=== PATIENT | female | born 1995 | race Two or more races ===

== ENCOUNTER 2025-03-09 07:34 | Emergency (ER) | payer MEDICAID, SELFPAY ==
--- NOTE | 2025-03-09 07:37 | XR_ITS ---
Examination: Complete OB ultrasound, less than 14 weeks, transabdominal Date and time of exam: March 09, 2025, 0753 hours INDICATIONS: Vaginal bleeding beginning yesterday, positive test yesterday Technique: Obstetrical ultrasound images less than 14 weeks performed via transabdominal imaging Findings: A normal shaped single intrauterine gestation is present in the uterus. CRL 1.1 cm corresponds to 7 weeks 1 day gestational age Cardiac motion 138 BPM Ultrasonographic survey of visible and placental structures unremarkable. Amniotic fluid volume appears appropriate for this estimated gestational age. Right ovary 3.5 cm arterial flow 14 mm follicular cyst Left ovary 2.6 cm arterial flow to millimeters follicular cyst IMPRESSION: Viable intrauterine gestation 7 weeks 1 day.
[2025-03-09 07:44] VITALS: BP 134/94; PULSE 85; RESP 17; TEMP 36.8; O2SAT 98; BMI 44.6
[2025-03-09 08:00] LABS: Basophils # (Auto) 0.1 Thou/mm3 (0.0-0.2); Basophils % (Auto) 0 % (0-2.5); Eosinophils # (Auto) 0.1 Thou/mm3 (0.0-0.5); Eosinophils % (Auto) 1 % (0-10); Hematocrit 40.1 % (36.0-46.0); Hemoglobin 13.5 g/dL (12.0-16.0); Immature Granulocytes Auto 0.04 Thou/mm3 (0.00-0.00); Lymphocytes # (Auto) 2.2 Thou/mm3 (1.0-4.8); Lymphocytes % (Auto) 19 % (10-50); Mean Corpuscular HGB Conc 33.7 g/dl (31.0-37.0); Mean Corpuscular Hemoglobin 28.5 pg (25.0-35.0); Mean Corpuscular Volume 85 fL (80-100); Monocytes # (Auto) 0.5 Thou/mm3 (0.0-0.8); Monocytes % (Auto) 4 % (0-12); Neutrophils # (Auto) 8.9 Thou/mm3 (1.8-7.7); Neutrophils % (Auto) 76 % (37-80); Nucleated Red Blood Cell # 0.00 Thou/mm3 (0.00-0.00); Nucleated Red Blood Cell % 0 /100 WBC (0); Platelet Count 315 Thou/mm3 (140-440); RDW Standard Deviation 40.1 fL (36.4-46.3); Red Blood Count 4.74 Miln/mm3 (4.00-5.20); White Blood Count 11.8 Thou/mm3 (3.6-11.0)
[2025-03-09 08:44] LABS: Alanine Aminotransferase 54 U/L (10-49); Albumin, Serum 4.6 gm/dL (3.5-5.0); Albumin/Globulin Ratio 1.9 (1.2-2.2); Alkaline Phosphatase 54 U/L (46-116); Anion Gap 10 (7-16); Aspartate Amino Transferase 30 U/L (0-34); BUN/Creatinine Ratio 15 Ratio (12-20); Bilirubin,Total 0.4 mg/dL (0.3-1.2); Blood Urea Nitrogen 9 mg/dL (9-23); Calcium 10.0 mg/dL (8.3-10.6); Calcium (Corrected) 10.0 mg/dL (8.5-10.1); Carbon Dioxide 26.0 mMol/L (20.0-31.0); Chloride 104 mMol/L (98-107); Creatinine (Component) 0.6 mg/dL (0.6-1.3); Estimated Creatinine Clearance 177.9 mL/min (>60); Globulin 2.4 gm/dL (2.3-3.5); Glucose 96 mg/dL (74-106); Osmolality,Calculated 278 (275-295); Potassium 3.8 mMol/L (3.4-5.1); Sodium 140 mMol/L (136-145); Total Protein 7.0 gm/dL (5.7-8.2); eGFR > 60 See Note
[2025-03-09 08:47] LABS: Collection Type, Urine Clean Catch
[2025-03-09 08:58] LABS: Beta HCG,Quantitative 57678 mIU/mL (<5.0)
[2025-03-09 09:09] LABS: Bacteria,Urine Rare; Bilirubin,Urine Negative (Negative); Blood,Urine Negative (Negative); Clarity,Urine Turbid (Clear/Hazy); Color,Urine Yellow (Lt Yel-Yel); Glucose, Urine Negative (Negative); Ketones,Urine Negative (Negative); Leukocyte Esterase,Urine Positive (Negative); Nitrite,Urine Negative (Negative); PH,Urine 7.0 (5.0-7.0); Protein,Urine Trace (Neg - Trace); RBC,Urine 5 /hpf (0-3); Specific Gravity,Urine 1.023 (1.001-1.035); Squamous Epithelial Cell,Urine 11 /hpf (0-5); Urobilinogen,Urine Negative mg/dL (0.0-1.0); WBC,Urine 3 /hpf (0-5)
--- NOTE | 2025-03-09 09:41 | EDNOTE_ITS ---
ED OB Contraction Preg RMI/HPI General Chief complaint: Vaginal Bleeding Stated complaint: 12 weeks OB, vaginal bleeding, low back pain Time Seen by Provider: 03/09/25 07:36 Arrival date/time: 03/09/25 07:34 30-year-old female presents to the Emergency Department today states she believes she is approximately 12 weeks patient reports lower back pain and pelvic pain with vaginal spotting Limitations: no limitations Related Data Home Medications ?Medication ?Instructions ?Recorded ?Confirmed vits no.124-ferrous fum 1 tab PO QDAY 0 03/05/20 27 mg iron-folic acid 800 mcg tablet ( Vitamin) Allergies Allergy/AdvReac Type Severity Reaction Status Date / Time walnut Allergy Unknown THROAT Verified 03/09/25 07:39 AGNES Review of Systems Review of Systems Systems Reviewed: All systems reviewed, normal except as documented Constitutional Constitutional: Reports system reviewed and no additional complaints, except as documented, Denies fever(s) and Denies headache(s) Eyes Eyes: Reports system reviewed and no additional complaints, except as documented and Denies blurry vision ENT Ears, Nose, Mouth, and Throat: Reports system reviewed and no additional complaints, except as documented, Denies headache(s), Denies nasal congestion and Denies nasal discharge Cardiovascular Cardiovascular: Reports system reviewed and no additional complaints, except as documented, Denies chest pain and Denies dyspnea Respiratory Respiratory: Reports system reviewed and no additional complaints, except as documented, Denies chest congestion, Denies cough and Denies dyspnea Gastrointestinal Gastrointestinal: Reports system reviewed and no additional complaints, except as documented and Denies abdominal pain Genitourinary Genitourinary: Reports system reviewed and no additional complaints, except as documented, Reports abnormal vaginal bleeding and Reports pelvic pain Integumentary/Breasts Skin/Breast: Reports system reviewed and no additional complaints, except as documented and Denies rash Neurologic Neurologic: Reports system reviewed and no additional complaints, except as documented, Reports as per HPI and Denies headache(s) Past Medical History Past Medical History NEUROLOGIC: Negative Neurological Disorders or Seizures CARDIAC: Negative Cardiac Disorders or Congestive Heart Failure RESPIRATORY: Positive Asthma; Negative Chronic Obstructive Pulmonary Disease (COPD) GASTROINTESTINAL: Positive Gastrointestinal Disorders and Gall Bladder Disease (PT CURRENTLY HAS GALLSTONES); Negative Colorectal Cancer GENITOURINARY: Negative Genitourinary Disorders, Renal Disease or Prostate Cancer REPRODUCTIVE: Positive Previous Pregnancies; Negative Breast Cancer or Testicular Cancer MUSCULOSKELETAL: Negative Musculoskeletal Disorders or Bone Cancer ENT: Positive Ear Infection ENDOCRINE: Negative Endocrine Disorders, Diabetes Mellitus Type 1 or Diabetes Mellitus Type 2 HEMATOLOGIC: Positive Blood Disorders and Anemia (WITH FIRST ) OTHER HISTORY: Positive Hospitalization (CHILDBIRTH); Negative Autoimmune Disease, Falls, Blood Transfusions, Blood Transfusion Reaction, Anesthesia Reactions, Clostridium Difficile, Cancer, Breast Cancer, Cervical Cancer, Colorectal Cancer, Lung Cancer, Ovarian Cancer, Prostate Cancer or Testicular Cancer Family History FAMILY HISTORY: Positive Family Cardiac Disorders (FATHER HAD HEART ATTACK); Negative Family Psychiatric Problems, Family Respiratory Disorders, Family Gastrointestinal Problems, Family Cancer, Family Surgery or Family Anesthesia Reaction Surgical History SURGICAL: Positive Section (X 2015) Social History SMOKING STATUS: Never smoker ED Exam General Limitations: Present no limitations General appearance: Present alert and in no apparent distress Head Head exam: Present atraumatic, normocephalic and normal inspection Eye Eye exam: Present normal appearance, PERRL and EOMI; Absent conjunctival injection ENT ENT exam: Present normal exam, normal oropharynx and mucous membranes moist Neck Neck exam: Present normal inspection, full ROM and trachea midline Chest Chest inspection: Present normal inspection and symmetric chest wall rise Respiratory Respiratory exam: Present normal lung sounds bilaterally; Absent respiratory distress Cardiovascular Cardiovascular exam: Present regular rate, normal rhythm and normal heart sounds Abdominal Exam Abdominal exam: Present soft and normal bowel sounds; Absent distention, tenderness, guarding, rebound or rigidity Extremities Exam Extremities exam: Present normal inspection and full ROM Back Exam Back exam: Present normal inspection and full ROM Neurological Exam Neurological exam: Present alert, oriented X3 and CN II-XII intact Psychiatric Psychiatric exam: Present normal affect and normal mood Skin Skin exam: Present warm, dry, intact and normal color Course Quality Measures none Orders Category Date Time Status US OB <= 14 weeks fetus Stat Exams 03/09/25 07:37 Completed ABO/RH Type Stat Lab 03/09/25 07:50 Completed Beta HCG,Quantitative Stat Lab 03/09/25 07:50 Completed CBC Stat Lab 03/09/25 07:50 Completed Comprehensive Metabolic Panel Stat Lab 03/09/25 07:50 Completed UA [Urinalysis] Stat Lab 03/09/25 08:27 Completed Urine Culture Stat Lab 03/09/25 08:27 Completed Vital Signs Vital signs: Vital Signs Temperature 98.3 F 03/09/25 07:44 Pulse Rate 85 03/09/25 07:44 Respiratory Rate 17 03/09/25 07:44 Blood Pressure 134/94 H 03/09/25 07:44 Pulse Oximetry (%) 98 03/09/25 07:44 Oxygen Delivery Method Room Air 03/09/25 07:44 O2 saturation 98% room air within normal limits Vaginal Bleeding MDM Narrative MDM Narrative: 30-year-old female presents to the Emergency Department today states she believes she is approximately 12 weeks patient reports lower back pain and pelvic pain with vaginal spotting On exam patient well-appearing patient is not appear ill or toxic no acute distress On exam patient has no active bleeding Lab work and imaging obtained patient appears to have viable 7 weeks 1 day Patient struck to follow-up with [facility] as soon as possible for worsening concerns return immediately Patient data External records reviewed:: [facility] previous records Clinical information provided by:: patient Social determinants that could affect healthcare access:: none Patient has the following chronic illnesses:: None How is presenting disease/condition affected by chronic disease/condition?: no chronic disease Evaluation data The following diagnostics were reviewed and interpreted by me:: lab results and radiology exam(s) Lab and/or radiology exams considered but not ordered:: Labs radiology obtained Interpretation Summary: Reviewed by me Medications / Prescriptions Medications or Prescriptions considered but not ordered:: Given no meds Medication administrations:: Given no meds Consultations Consultation(s) initiated? (list below): No Diagnosis Vaginal Bleeding Differential Diagnosis: missed and threatened Most likely diagnosis given after review of the tests above:: Bleeding affecting Admission Indicated Admission indicated?: not indicated Admission Request Was there a request for admission?: No Disposition Plan Disposition Plan: Discharge Discharge Attestation Discharge Attestation: The patient and all family members were given an opportunity to ask questions and understood the discharge instructions. Discharge instructions specifically effects, indications for sooner follow up or return to the emergency department, and the expected course of current diagnosis. Patient condition: Stable Discharge Plan Plan Patient Disposition: HOME (Self Care) Discharge Disposition comment: Stable Prescriptions/Referrals Prescriptions/Med Rec: No Action Vitamin 27 mg iron- 800 mcg Tablet 1 tab PO QDAY Referrals: No Primary/Family,Physician [Primary Care Provider] - In 1 week Problem List Clinical Impression: Pelvic pain during Patient/Caregiver Discharge Instructions Education Materials: Medicine for Pain Additional Instructions: Please follow up with your [facility] doctor in the next 24-48hrs for any worsening symptoms return here immediately Print Language: Tanzanian Stand Alone Forms: Cinthia Award Info., Patient Portal Info Letter PA/DESTINATION IMAGINATION COORDINATOR Supervising Physician PA/DESTINATION IMAGINATION COORDINATOR Supervising Physician: Dr. jenkins
== END 2025-03-09 10:45 | disposition home or self-care (01) ==
PROVIDERS: Nurse Practitioner Primary Care; Emergency Provider Family Medicine
DX: O99.891 Other specified diseases and conditions complicating pregnancy (principal); R10.2 Pelvic and perineal pain; Z3A.12 12 weeks gestation of pregnancy
CPT/HCPCS: 36415; 76801; 80053; 81001; 84702; 85025; 86900; 86901; 87086; 99283

== ENCOUNTER 2025-04-14 06:45 | Emergency (ER) | payer MEDICAID, SELFPAY ==
[2025-04-14 06:46] VITALS: BMI 46.0
[2025-04-14 07:03] VITALS: BP 124/89; PULSE 100; RESP 18; TEMP 36.9; O2SAT 98
--- NOTE | 2025-04-14 07:41 | PD.EDURI ---
Upper Respiratory Inf. RME/HPI General Chief Complaint: Upper Respiratory Infection Stated Complaint: L SIDE FACIAL PAIN Time Seen by Provider: 04/14/25 06:55 Source: patient Arrival date/time: 04/14/25 06:45 30-year-old female with no known medical history presents to the emergency room with a chief complaint of left-sided facial pain x 4 days. Mode of arrival: ambulatory Limitations: no limitations Related Data Home Medications ?Medication ?Instructions ?Recorded ?Confirmed vits no.124-ferrous fum 1 tab PO QDAY 03/05/20 03/05/20 27 mg iron-folic acid 800 mcg tablet ( Vitamin) Previous Rx's ?Medication ?Instructions ?Recorded acetaminophen 325 mg capsule 650 mg (2 x 325 mg) PO QID PRN 04/14/25 fever or pain 7 days #30 caps clindamycin HCl 300 mg capsule 300 mg PO TID 7 days #21 caps 04/14/25 Allergies Allergy/AdvReac Type Severity Reaction Status Date / Time walnut Allergy Unknown THROAT Verified 04/14/25 06:49 AGNES Review of Systems Review of Systems Systems Reviewed: All systems reviewed, normal except as documented Constitutional Constitutional: Reports system reviewed and no additional complaints, except as documented, Denies fatigue, Denies fever(s), Denies headache(s) and Denies weakness Eyes Eyes: Reports system reviewed and no additional complaints, except as documented, Denies blurry vision and Denies change in vision ENT Ears, Nose, Mouth, and Throat: Reports system reviewed and no additional complaints, except as documented, Denies otalgia, Denies headache(s), Denies nasal congestion, Denies throat swelling and Denies vertigo Cardiovascular Cardiovascular: Reports system reviewed and no additional complaints, except as documented, Denies chest pain, Denies dyspnea and Denies dyspnea on exertion Respiratory Respiratory: Reports system reviewed and no additional complaints, except as documented, Denies chest congestion, Denies cough, Denies dyspnea, Denies dyspnea on exertion and Denies wheezing Gastrointestinal Gastrointestinal: Reports system reviewed and no additional complaints, except as documented, Denies abdominal pain, Denies cramping, Denies nausea and Denies vomiting Genitourinary Genitourinary: Reports system reviewed and no additional complaints, except as documented Musculoskeletal Musculoskeletal: Reports system reviewed and no additional complaints, except as documented and Denies back pain Integumentary/Breasts Skin/Breast: Reports system reviewed and no additional complaints, except as documented and Denies wounds Neurologic Neurologic: Reports system reviewed and no additional complaints, except as documented, Denies confusion, Denies headache(s), Denies lack of coordination, Denies vertigo and Denies weakness Psychiatric Psychiatric: Reports system reviewed and no additional complaints, except as documented, Denies anxiety, Denies confusion, Denies depression, Denies paranoia, Denies suicidal ideation and Denies tactile hallucinations Endocrine Endocrine: Reports system reviewed and no additional complaints, except as documented and Denies fatigue Hematologic/Lymphatic Hematologic/Lymphatic: Reports system reviewed and no additional complaints, except as documented and Denies lymphadenopathy Allergic/Immunologic Allergic/Immunologic: Reports system reviewed and no additional complaints, except as documented, Denies throat swelling, Denies urticaria and Denies wheezing ED Exam General Limitations: Present no limitations General appearance: Present alert and in no apparent distress Head Head exam: Present atraumatic Eye Eye exam: Present normal appearance, PERRL and EOMI ENT ENT exam: Present normal exam, normal oropharynx and mucous membranes moist Expanded ENT Exam Mouth exam: Present normal external inspection; Absent trismus, tongue normal, tongue elevation or tongue swelling Teeth exam: Present normal inspection and dental tenderness #; Absent fractured tooth # or gingival swelling Teeth numbered:  1. Dental Tenderness Throat exam: Present normal inspection; Absent tonsillar erythema or tonsillar exudate Neck Neck exam: Present normal inspection, full ROM and trachea midline Chest Chest inspection: Present normal inspection and symmetric chest wall rise Respiratory Respiratory exam: Present normal lung sounds bilaterally Cardiovascular Cardiovascular exam: Present regular rate, normal rhythm and normal heart sounds Abdominal Exam Abdominal exam: Present soft and normal bowel sounds Extremities Exam Extremities exam: Present normal inspection and full ROM Back Exam Back exam: Present normal inspection and full ROM Neurological Exam Neurological exam: Present alert, oriented X3 and CN II-XII intact Psychiatric Psychiatric exam: Present normal affect and normal mood Skin Skin exam: Present warm, dry, intact and normal color Course Quality Measures none Vital Signs Vital signs: Vital Signs Temperature 98.5 F 04/14/25 07:03 Pulse Rate 100 04/14/25 07:03 Respiratory Rate 18 04/14/25 07:03 Blood Pressure 124/89 H 04/14/25 07:03 Pulse Oximetry (%) 98 04/14/25 07:03 Oxygen Delivery Method Room Air 04/14/25 07:03 Upper Respiratory Infection MDM Narrative MDM Narrative:: 30-year-old female with no known medical history presents to the emergency room with a chief complaint of left-sided facial pain x 4 days. Patient is hemodynamically stable and in no apparent distress. Patient is currently 10 weeks . Patient states she is having tenderness of her left facial area. An ENT examination was completed and the pain is above tooth #13 and 14. The pain is not actually on the tooth itself but radiates up the gum and is next to her cheekbone. Antibiotics are sent to the patient's pharmacy and the patient was educated to follow-up with her primary care provider and return to the emergency room for any evidence of worsening signs or symptoms Patient data External records reviewed:: [facility] previous records Clinical information provided by:: patient Social determinants that could affect healthcare access:: none Patient has the following chronic illnesses:: No chronic illness How is presenting disease/condition affected by chronic disease/condition?: no chronic disease Evaluation data The following diagnostics were reviewed and interpreted by me:: lab results and radiology exam(s) Lab and/or radiology exams considered but not ordered:: Labs and radiology exams considered and ordered Interpretation Summary: N/A Medications / Prescriptions Medications or Prescriptions considered but not ordered:: No medication given Medication administrations:: No medication given Consultations Consultation(s) initiated? (list below): No Diagnosis Upper Respiratory Differential Diagnosis: upper respiratory infection, viral infection, influenza, pharyngitis and other (Tooth pain) Most likely diagnosis given after review of the tests above:: Tooth pain Admission Indicated Admission indicated?: not indicated Admission Request Was there a request for admission?: No Disposition Plan Disposition Plan: Discharge Discharge Attestation Discharge Attestation: The patient and all family members were given an opportunity to ask questions and understood the discharge instructions. Discharge instructions specifically effects, indications for sooner follow up or return to the emergency department, and the expected course of current diagnosis. Patient condition: Stable Discharge Plan Plan Patient Disposition: HOME (Self Care) Discharge Disposition comment: stable Prescriptions/Referrals Prescriptions/Med Rec: New clindamycin HCl 300 mg capsule 300 mg PO TID 7 Days Qty: 21 0RF acetaminophen 325 mg capsule 650 mg PO QID PRN (Reason: fever or pain) 7 Days Qty: 30 0RF No Action Vitamin 27 mg iron- 800 mcg Tablet 1 tab PO QDAY Problem List Clinical Impression: Pain, dental Patient/Caregiver Discharge Instructions Education Materials: ED Dental Pain Additional Instructions: Please follow-up with your dentist in the next 24 to 48 hours Antibiotics are sent to your pharmacy please pick them up and take them as indicated Keep taking Tylenol for pain management. For any evidence of worsening signs or symptoms return to the emergency room immediately Print Language: Greenlandic Stand Alone Forms: Cinthia Award Info., Work/School Release, Patient Portal Info Letter PA/TWISTING FRAME CHANGER Supervising Physician PA/TWISTING FRAME CHANGER Supervising Physician: Dr. Leon
== END 2025-04-14 07:43 | disposition home or self-care (01) ==
PROVIDERS: Emergency Provider Family Medicine
DX: O99.611 Diseases of the digestive system complicating pregnancy, first trimester (principal); K08.89 Other specified disorders of teeth and supporting structures; Z3A.10 10 weeks gestation of pregnancy
CPT/HCPCS: 99281

== ENCOUNTER 2025-06-23 14:44 | Outpatient (AMB) | payer MEDICAID, SELFPAY ==
[2025-06-23 14:58] VITALS: BP 126/84; PULSE 86; RESP 16; TEMP 36.2; O2SAT 98; BMI 44.7
--- NOTE | 2025-06-23 14:58 | OBCLNT_ITS ---
Vital Signs 06/23/25 14:58 Height 1.63 m Height Method Stated Weight 118.841 kg Weight Measurement Method Standing Scale BMI 44.7 BP 126/84 Blood Pressure Source Automatic Cuff Blood Pressure Location Left Upper Arm Position Sitting Respiration 16 Pulse 86 Pulse Source Monitor Temp 97.1 F Temp Source Oral Pulse Oximetry (%) 98 Oxygen Delivery Method Room Air Allergies/Home Meds Allergies & Medications Allergies walnut Allergy (Unknown, Verified 06/23/25 14:58) THROAT SWELLS Medication Reconciliation vits no.124-ferrous fum 27 mg iron-folic acid 800 mcg tablet ( Vitamin) 1 tab PO QDAY 03/05/20 [History Confirmed 06/23/25] aspirin 81 mg tablet,delayed release (Adult Aspirin Regimen) 81 mg PO QDAY #60 tabs 06/23/25 [Rx] Intake Visit Data Collection New Patient or Established: Established Patient (seen at [facility] within 3 years) Reason for Visit:: TRANSFER INITIAL CARE Seen by Clinical Staff ONLY (RN/MA): No Refinish Technician Required: No Do You Feel Safe at Home: Yes Authorities Contacted: N/A PCP or OBGYN visit in last 3 months: Yes Hx Now: Yes Are you currently on any form of Control: No Last menstrual period: 11/26/24 Pain Present Currently: No Pain Scale Used: Millan-Chan/Numerical Pain scale:: 0 Smoking Status Smoking Status: Former smoker Immunizations Flu Vaccine in the Last 12 Months: No Flu Vaccine Exclusion Criteria: Refused by Patient Questionnaires Covid-19 Vaccine Questionnaire Has patient been vacinated for Covid-19 Have you been vacinated for Covid-19: Yes PHQ-9 PHQ-2 Over the last 2 weeks, how often have you been bothered by any of the following problems? 1. Little interest or pleasure in doing things: not at all 2. Feeling down, depressed, or hopeless: not at all Total score: 0 PHQ-9 3. Trouble falling or staying asleep, or sleeping too much: Not at all 4. Feeling tired or having little energy: Not at all 5. Poor appetite or overeating: Not at all 6. Feeling bad about yourself - or that you are a failure or have let yourself or your family down: Not at all 7. Trouble concentrating on things, such as reading the newspaper or watching television: Not at all 8. Moving or speaking so slowly that other people could have noticed? - Or the opposite - being so fidgety or restless that you have been moving around a lot more than usual: not at all 9. Thoughts that you would be better off or of hurting yourself in some way: Not at all Total score: 0 Source: Developed by Drs. Aaron Pillai, Sera Corea, Reynaldo Reina and colleagues, with an educational cheyenne from [address]. Depression screen completed yes Social History Living Situation History Marital Status: Lives With: Family Housing: House Tobacco History Smoking Status: Former smoker Second Hand Smoke Exposure: No Alcohol History Alcohol Intake: Former Alcohol Intake Frequency: holidays/special occasions only Domestic Abuse History Do You Feel Safe at Home: Yes History of Present Illness HPI Narrative This is a 30-year-old 3 para 2 for OBI. Patient had her initial appointment at [facility]. She has no dates. First ultrasound was March 09 and the measured 7 weeks and 1 day. This gives EDC of October 25, 2025. Patient denies existence of any chronic medical illness. And denies any social habits. She is a previous x 2. And she had a cholecystectomy in 2020. Denies leaking, bleeding, contractions. And she reports movement. Patient is A+, antibody screen negative, RPR nonreactive, she is rubella immune. GC and Chlamydia were negative. She is hepatitis B negative. HIV negative, and hep C negative. Her A1c was 4.3 and her NIPT and carrier screens were negative. OPERATIONS SECTION MANAGER: Past Medical History Past Medical History: No Hx Neurological Disorders, No Hx Breast Cancer, No Hx Cardiac Disorders, No Hx Cancer, Yes Hx Blood Disorders, Yes Hx Anemia (WITH FIRST ), Yes Hx Gastrointestinal Disorders, No Hx Renal Disease, No Hx Diabetes Mellitus Type 1 and No Hx Diabetes Mellitus Type 2 OB Initial Visit OB Flowsheet OB Flowsheet Initial Weight: Not Recorded Date -?-?-?-?-?-?-?-?-?-?-?-?- EGA Weight BP Alb Glu CTX Pres Fundal ht FHR Mov Dilation Station Effacement Hx Notes Visit Note 06/23/25 -?-?-?-?-?-?-?-?-?-?-?-?- 22w 2d 118.841 kg 126/84 absent unknown 22 145 active 30-year-old 3 para 2 for OBI. Patient is a repeat x 2. No dates. First ultrasound was March 09. Patient was 7 weeks 1 day and this gave an EDC of October 25, 2025. Reports good movement. Denies leaking, bleeding, contractions Start low-dose b becky aspirin. Continue prenatals. Schedule ultrasound at [facility] for anatomy scan. And return in 4 weeks for OB check Menstrual History Menstrual reliability: approximate (month known) Flow: normal Menstrual regularity: irregular Monthly: No Age at menarche: 15 On control pills at conception: No Associated symptoms (LMP): Denies amenorrhea, nausea, vomiting, fatigue, breast tenderness, urinary frequency, irritability, bloating or other OB History : 3 Para: 2 Hx # Pregnancies: 1 # of Living Children: 2 Delivery History 1st : Child's name: [email or web address] date: 03/14/16 sex: female Gestational age at delivery (weeks): 32 Delivery type: History of depression before or after : No 2nd : Child's name: YVONNE date: 03/05/20 sex: female Gestational age at delivery (weeks): 37 Delivery type: Delivery complications: NONE History of depression before or after : No Infection History & Risk Evaluation History of STDs: none Genetic Screening & History Genetic Screening/Teratology Counseling - Includes patient, baby's father, or anyone in either family with: 1. Patient's age 35 years or older as of estimated date of delivery: No 2. Thalassemia (Sinhala, Yakut, Mediterranean, or Background); MCV less than 80: No 3. Neural Tube Defect (Meningomyelocele, Spina Bifida, or Anencephaly): No 4. Congenital Heart Defect: No 5. Down Syndrome: No 6. Frederick-Sachs (Ashkenazi Zoroastrianism, Cajun, Tajik German): No 7. Hector Disease (Ashkenazi Zoroastrianism): No 8. Familial Dysautonomia (Ashkenazi Zoroastrianism): No 9. Sickle Cell Disease or Trait (): No 10. Hemophilia or other blood disorders: No 11. Muscular Dystrophy: No 12. Cystic Fibrosis: No 13. Macon's Chorea: No 14. Mental Retardation/Autism: No 15. Other inherited genetic or chromosomal disorder: No 16. Maternal Metabolic Disorder (EG,TYPE 1 Diabetes, PKU): No 17. Patient or baby's father had a child with defects not listed above: No 18. Recurrent loss or a stillbirth: No 19. Medications (including supplements, vitamins, herbs or otc drugs)/illicit/recreational drugs/alcohol since last menstrual period: No 20. Any other: No Infection History 1. Live with someone with TB or exposed to TB: No 2. Rash or viral illness since last menstrual period: No 3. Hepatitis B,C: No Other (see comments) Source: [employer] Review of Systems Review of Systems Systems Reviewed: All systems reviewed, normal except as documented Constitutional Constitutional: Denies fatigue Gastrointestinal Gastrointestinal: Denies bloating, Denies nausea and Denies vomiting Genitourinary Genitourinary: Denies amenorrhea and Denies urinary frequency Psychiatric Psychiatric: Denies irritability Endocrine Endocrine: Denies fatigue Exam General Limitations: no limitations General Appearance: alert, in no apparent distress, comfortable, cooperative, healthy appearing, well developed and well groomed Head Head exam: atraumatic, normocephalic and normal inspection ENT ENT exam: Present normal exam, normal oropharynx and mucous membranes moist Neck Neck exam: Present normal inspection, full ROM and trachea midline Chest Chest inspection: Present normal inspection and symmetric chest wall rise Resp Respiratory exam: Present normal lung sounds bilaterally Card Cardiovascular exam: Present regular rate, normal rhythm and normal heart sounds Abdominal Abdominal exam: Present soft and normal bowel sounds Psych Psychiatric exam: Present normal affect and normal mood Skin Skin exam: Present warm, dry, intact and normal color Office Procedures OBC Clinic LOC & Office Proc's Nursing/Assessment Patient Status: Established Patient OB Clinic Nursing Assessment: Medication Reconciliation, Update PMH in EMR and Vital Signs OB Clinic Coordination of Care: Complex Care and Chronic Disease 1-5, Consent,records obtained, informed consent, Education Simp Pt/Fam, 1 Ins Authorization, Lab and Imaging orders, Results/Orders obtained and Staff clarify orders Special Needs: Heart tones Established Patient Charge Established Patient Point Assignment: 150 Established Patient Point Charge: EP Level 4 (120-155) Assessment & Plan Diagnosis / Problem List (1) Encounter for supervision of high risk in second trimester, antepartum: Status: Acute (2) Encounter for maternal care for low transverse scar from previous delivery: Status: Acute Plan I ordered low-dose baby aspirin. She will take 1 today. Schedule with maternal- medicine at [facility] for anatomy scan. Discussed all he r labs. labor. Cautions reviewed. Lots of fluids. Return in 4 weeks OB check. Patient scheduled with OB for previous management Additional Plan Follow Up: 4 Weeks (obc)
== END 2025-06-23 15:21 | disposition home or self-care (01) ==
LOC: HODSOBC 14:44
PROVIDERS: Supervising Provider Advanced Practice Midwife; Visit Provider Advanced Practice Midwife
DX: O09.292 Supervision of pregnancy with other poor reproductive or obstetric history, second trimester (principal); O34.211 Maternal care for low transverse scar from previous cesarean delivery; Z3A.22 22 weeks gestation of pregnancy; Z90.49 Acquired absence of other specified parts of digestive tract; Z87.891 Personal history of nicotine dependence; Z91.010 Allergy to peanuts
CPT/HCPCS: 99214; G0463